=== PATIENT | female | born 1995 | race African-American/Black ===

== ENCOUNTER 2020-03-31 22:15 | Inpatient (IN) ==
[2020-03-31] MEDS ORDERED: LACTATED RINGERS 500 ML IV PRN (22:27)
[2020-03-31] MEDS ORDERED: ONDANSETRON 4 MG/2 ML VIAL IV PRN (22:27)
[2020-03-31] MEDS ORDERED: MEPERIDINE 50 MG/1 ML VIAL IV PRN (22:37)
[2020-03-31] MEDS ORDERED: BUTORPHANOL 1 MG/ML VIAL IV PRN (22:37)
[2020-03-31 23:13] LABS: Basophils % 0.2 % (0.0-0.8); Eosinophils % 0.5 % (0.00-10.9); Hematocrit 23.4 VOL% (35.7-47.0); Hemoglobin 6.7 GM/DL (12.0-16.0); Immature Granulocytes % 0.8 %; Immature Granulocytes Absolute 0.07 #; Lymphocytes # 1.9 10*3/uL (1.4-4.0); Lymphocytes % 22.3 % (21.3-54.2); Mean Corpuscular HGB Conc 28.6 GM/DL (32-36); Mean Corpuscular Volume 76.2 FL (87-102); Mean Platelet Volume 9.3 FL (9.6-12.0); Monocytes % 5.6 % (1.7-12.7); NRBC # 0.02 10*3/uL; Neutrophils % 70.6 % (38.7-73.9); Platelet Count 199 T/CUMM (130-400); Red Blood Count 3.07 MC/CUMM (3.8-5.5); Red Cell Distribution Width 17.5 % (9.3-17.3); White Blood Count 8.6 T/CUMM (4-12)
[2020-04-01 00:04] LABS: Alanine Aminotransferase < 9 U/L (13-56); Alkaline Phosphatase 201 U/L (45-117); Aspartate Amino Transferase 12 U/L (0-37); Bilirubin,Total < 0.39 MG/DL (0.2-1.0); Blood Urea Nitrogen 5 MG/DL (7-18); Calcium 8.7 MG/DL (8.5-10.1); Estimated Glom Filtration Rate 160 ML/MIN; Glucose 123 MG/DL (74-106); Osmolality,Calculated 270.8 MOS/KG (273-304); Uric Acid 4.1 MG/DL (2.6-6.0)
[2020-04-01 02:59] LABS: Hypochromasia 2+; Microcytosis 2+; Platelet Estimate Normal; Polychromasia Few
[2020-04-01 03:00] LABS: Ovalocytes 1+; Tear Drop Cells 1+
[2020-04-01] MEDS: LACTATED RINGERS 1,000 ML IV SCH ×3 (07:27→11:30)
[2020-04-01] MEDS ORDERED: diphenhydrAMINE 50 MG/1 ML VIAL IV PRN (07:29)
[2020-04-01] MEDS ORDERED: ePHEDrine 50 MG/ML AMP IV PRN (07:29)
[2020-04-01] MEDS ORDERED: CITRIC ACID/SODIUM CITRATE 30 ML UDCUP PO ONE (07:29)
[2020-04-01] MEDS ORDERED: PROMETHAZINE 25 MG/1 ML VIAL IM PRN (07:29)
[2020-04-01] MEDS ORDERED: FAMOTIDINE 20 MG/2 ML VIAL IV ONE (07:29)
[2020-04-01] MEDS ORDERED: hydrOXYzine HCL 25 MG/1 ML VIAL IM PRN (07:29)
[2020-04-01] MEDS ORDERED: NALOXONE 0.4 MG/ML VIAL IV PRN (07:29)
[2020-04-01] MEDS ORDERED: fentaNYL 2 MCG/ROPIV 0.2% EPID 100 ML EPIDURAL SCH (07:30)
[2020-04-01] MEDS ORDERED: TERBUTALINE 1 MG/1 ML VIAL ONE (09:48)
[2020-04-01] MEDS ORDERED: TERBUTALINE 1 MG/1 ML VIAL SUBCUT ONE (09:49)
[2020-04-01 09:57] LABS: Apearance,Urine CLEAR (Clear); Bilirubin,Urine Negative (Negative); Blood, Urine Negative (Negative); Glucose,Urine (UA) Negative (Negative); Ketones,Urine Negative (Negative); Mucus,Urine Occasional /LPF (Occasional); Nitrite,Urine Negative (Negative); Protein,Urine Negative; RBC,Urine 1 /HPF (0-4); Squamous Epithelial Cell,Urine Occasional /HPF (0-10); Urine Color Yellow (Yellow); Urine Specific Gravity 1.021 (1.001-1.035); Urine Urobilinogen < 2.0 EU/DL (0.2-1.0); WBC,Urine <1 /HPF (0-6)
[2020-04-01] MEDS ORDERED: OXYTOCIN/LR 20 UNIT/1,000 ML BAG IV SCH (11:00)
[2020-04-01] MEDS ORDERED: TRANEXAMIC ACID 1,000 MG/10 ML VIAL ONE (12:18)
[2020-04-01] MEDS ORDERED: miSOPROStoL 200 MCG TABLET ONE (12:18)
[2020-04-01] MEDS ORDERED: CARBOPROST TROMETHAMINE 250 MCG/ML AMP IM ONE (12:19)
[2020-04-01] MEDS ORDERED: METHYLERGONOVINE 0.2 MG/1 ML AMP ONE (12:19)
[2020-04-01] MEDS ORDERED: OXYTOCIN/LR 20 UNIT/1,000 ML BAG IV ONE ×2 (12:19→13:23)
[2020-04-01] MEDS ORDERED: SODIUM CHLORIDE 0.9% 0 ML IV ONE (12:20)
[2020-04-01] MEDS ORDERED: MEASLES/MUMPS/RUBELLA VACCINE 0.5 ML VIAL SUBCUT ONE (13:23)
[2020-04-01] MEDS ORDERED: BENZOCAINE 20%/MENTHOL 0.5% SPRAY 56 GM CAN TOP PRN (13:23)
[2020-04-01] MEDS ORDERED: RHO(D) IMMUNE GLOBULIN 300 MCG SYRINGE IM ONE (13:23)
[2020-04-01] MEDS ORDERED: DIPH/TET/ACEL PERT BOOSTER VACCINE 0.5 ML VIAL IM ONE (13:23)
[2020-04-01] MEDS ORDERED: ACETAMINOPHEN 325 MG TABLET PO PRN (13:23)
[2020-04-01] MEDS ORDERED: LANOLIN 50% CREAM 0.3 OZ TUBE TOP PRN (13:23)
[2020-04-01] MEDS ORDERED: BISACODYL 10 MG SUPP RECTAL PRN (13:23)
[2020-04-01] MEDS ORDERED: HYDROCORTISONE 2.5% RECTAL CREAM 30 GM TUBE TOP PRN (13:23)
[2020-04-01] MEDS ORDERED: oxyCODONE/ACETAMINOPHEN 5-325 MG TABLET PO PRN ×2 (13:23)
[2020-04-01] MEDS ORDERED: WITCH HAZEL PADS 100/JAR TOP PRN (13:23)
[2020-04-01] MEDS ORDERED: ONDANSETRON 4 MG/2 ML VIAL IV PRN (13:23)
[2020-04-01] MEDS: FERROUS SULFATE 325 MG TABLET PO SCH ×2 (16:15→20:46)
[2020-04-01] MEDS: IBUPROFEN 800 MG TABLET PO PRN (16:15)
[2020-04-01] MEDS: DOCUSATE SODIUM 100 MG CAPSULE PO SCH (20:46)
[2020-04-02] MEDS: IBUPROFEN 800 MG TABLET PO PRN (06:03)
[2020-04-02] MEDS: FERROUS SULFATE 325 MG TABLET PO SCH (08:32)
[2020-04-02] MEDS: DOCUSATE SODIUM 100 MG CAPSULE PO SCH (08:32)
[2020-04-02 09:14] LABS: Basophils % 0.3 % (0.0-0.8); Eosinophils % 0.4 % (0.00-10.9); Hematocrit 23.1 VOL% (35.7-47.0); Hemoglobin 6.6 GM/DL (12.0-16.0); Immature Granulocytes % 1.2 %; Immature Granulocytes Absolute 0.14 #; Lymphocytes # 1.9 10*3/uL (1.4-4.0); Lymphocytes % 16.6 % (21.3-54.2); Mean Corpuscular HGB Conc 28.6 GM/DL (32-36); Mean Corpuscular Volume 75.7 FL (87-102); Mean Platelet Volume 9.8 FL (9.6-12.0); Monocytes % 4.4 % (1.7-12.7); NRBC # 0.09 10*3/uL; Neutrophils % 77.1 % (38.7-73.9); Platelet Count 194 T/CUMM (130-400); Red Blood Count 3.05 MC/CUMM (3.8-5.5); Red Cell Distribution Width 17.9 % (9.3-17.3); White Blood Count 11.3 T/CUMM (4-12)
[2020-04-02 09:38] LABS: Anisocytosis 2+; Platelet Estimate Normal
[2020-04-02 09:39] LABS: Macrocytosis 1+; Poikilocytosis 1+; Polychromasia 1+
[2020-04-02 09:40] LABS: Tear Drop Cells Few
[2020-04-02 11:19] VITALS: BP 126/72
== END 2020-04-02 14:35 | disposition home or self-care (01) | DRG 560 ==
LOC: N.LDOUT 22:15 → N.LD 22:18 → N.OB 04-01 16:02
PROVIDERS: ADMIT Specialist; ATTEND Specialist